=== PATIENT | female | born 1990 | race African-American/Black ===

== ENCOUNTER 2018-01-12 19:17 | Emergency (ER) | payer MEDICAID, OTHER ==
[~2018-01-12] VITALS: Ht 170.2 cm; Wt 87.0 kg
[2018-01-12 20:35] VITALS: BP 119/62
== END 2018-01-12 20:47 | disposition home or self-care (01) ==
LOC: ER 20:47
DX: L03.114 Cellulitis of left upper limb (principal); T78.40XA Allergy, unspecified, initial encounter; L81.8 Other specified disorders of pigmentation; X58.XXXA Exposure to other specified factors, initial encounter
CPT/HCPCS: 99281; 99283